=== PATIENT | male | born 1995 | race Two or more races ===

== ENCOUNTER 2019-07-15 16:59 | Emergency (ER) | payer SELFPAY ==
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
== END 2019-07-15 18:07 | disposition home or self-care (01) ==
LOC: JP.ED 16:59
DX: S90.01XA Contusion of right ankle, initial encounter (principal); S00.33XA Contusion of nose, initial encounter; V89.2XXA Person injured in unspecified motor-vehicle accident, traffic, initial encounter
CPT/HCPCS: 73552-26-LT; 73552-RT; 73610-26-RT; 73610-RT; 99282; 99284-25